=== PATIENT | male | born 1985 | race Caucasian/White ===

== ENCOUNTER 2018-11-11 20:02 | Emergency (ER) | payer SELFPAY ==
[2018-11-11 20:17] VITALS: BP 140/70; PULSE 86; TEMP 98.2; BMI 27.3
--- NOTE | 2018-11-11 20:43 | PDOC ---
Attending Attestation - Resident Resident Name: UnaWhit - ED Attending Attestation I have performed the following: I have examined & evaluated the patient, The case was reviewed & discussed with the resident, I agree w/resident's findings & plan - HPI HPI: 11/11/18 21:10 Pt comes with anxiety and panic attack. 11/11/18 21:47 Pt has a 1/2PPD smokerx 20 yrs - Physicial Exam PE: 11/11/18 21:11 Normal exam. No neuro findings; normal vitals No chest pain with palpation. Heart normal. No epigastric pain. 11/11/18 21:27 Agree with resident exam - Medical Decision Making 11/11/18 21:27 If labs are normal, pt will be stable for discharge home. We gave him 2 mg ativan PO for anxiety; we may send him home with 0.5mg ativan tid x 5 days. 11/11/18 21:46 CXR completely normal 11/11/18 22:40 troponin normal 11/12/18 00:25 Stable for d/c/ home; home with sister Heart Score/ECG Review - ECG Intrepretation Rhythm: Regular Rhythm - [place]: Normal - P and [place] Delta Wave(s) Present: No WPW: No - QRS Poor R Wave Progression: No Q Wave Present: No - ST and T Early Repolarization: No Non Specific ST-T Wave changes: No Flattened T Waves: No Prolonged Q-T Interval: No - ECG Impressions Normal ECG: Yes Non-specific ST Elevation: No Ischemic Changes: No Bradycardia: No Torsades renate Pointes: No WPW: No
[2018-11-11] MEDS ORDERED: LORazepam 1 MG TABLET PO ONE (21:10)
[2018-11-11] MEDS ORDERED: LORazepam 0.5 MG TABLET ONE (21:15)
--- NOTE | 2018-11-11 21:20 | PDOC ---
History of Present Illness - General Chief Complaint: Psychiatric Stated Complaint: ANXIETY Time Seen by Provider: 11/11/18 20:43 History Source: Patient, Sibling (sister) Exam Limitations: No Limitations - History of Present Illness Initial Comments: 11/11/18 21:17 32yo M with no significant PMH presenting to ED with complaints of anxiety, palpitations, chest tightness that has been happening every evening when he comes home from work for the past 3-4 weeks. Pt states that he went through a bad break up and when he starts to think about it, he feels like he is having a panic attack. He has never had symptoms like this before. His mother has a history of anxiety. He denies abdominal pain, n/v/d, fevers, chills, chest pain , back pain, syncope, drug use. He smokes 10-15 cigarettes/day, does not drink caffeine daily and occasionally drinks alcohol. PMD: none PSH: none PMH: none Meds: none Allergies: nkda Past History - Past Medical History Allergies/Adverse Reactions: Allergies Allergy/AdvReac Type Severity Reaction Status Date / Time No Known Allergies Allergy Verified 11/11/18 20:17 Home Medications: Ambulatory Orders Lorazepam [Ativan] 0.5 mg PO TID #15 tablet MDD 3 tabs 11/11/18 - Psycho Social/Smoking Cessation Hx Smoking History: Current every day smoker Number of Cigarettes Smoked Daily: 10 Information on smoking cessation initiated: No Hx Alcohol Use: Yes (Social) Drug/Substance Use Hx: No Review of Systems - Review of Systems Constitutional: Yes: Weight Stable. No: Chills, Fever, Loss of Appetite, Weakness HEENTM: No: Symptoms Reported Respiratory: Yes: See HPI Cardiac (ROS): Yes: See HPI ABD/GI: No: Symptoms Reported : No: Symptoms Reported Musculoskeletal: No: Symptoms Reported Integumentary: No: Symptoms Reported Neurological: Yes: See HPI Psychiatric: Yes: Anxiety *Physical Exam - Vital Signs Last Vital Signs Temp Pulse Resp BP Pulse Ox 98.2 F 86 18 140/70 99 11/11/18 20:03 11/11/18 20:03 11/11/18 20:03 11/11/18 20:03 11/11/18 20:03 - Physical Exam General Appearance: Yes: Nourished, Appropriately Dressed. No: Apparent Distress HEENT: positive: EOMI, SARTHAK, Normal ENT Inspection Neck: positive: Trachea midline, Supple. negative: Lymphadenopathy (R), Lymphadenopathy (L) Respiratory/Chest: positive: Lungs Clear, Normal Breath Sounds. negative: Crackles, Rales, Rhonchi, Stridor, Wheezing Cardiovascular: positive: Regular Rhythm, Regular Rate, S1, S2. negative: Edema , JVD, Murmur Vascular Pulses: Dorsalis-Pedis (R): 2+, Doralis-Pedis (L): 2+ Gastrointestinal/Abdominal: positive: Normal Bowel Sounds, Soft. negative: Tender Musculoskeletal: negative: CVA Tenderness Extremity: positive: Normal Capillary Refill. 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 states he has chest tightness, palpitations, sob. happens in the evenings after work and when he is alone. started after a breakup. worsened by thoughts of the breakup. ddx includes but not limited to anxiety, pe, acs, metabolic disorders, arrhythmia. low suspicion for pe PERC negative. will obtain labs including trop, tsh, ekg, cxr cxr appears grossly normal. read as bronchitis however pt does not have cough, or congestion. chest tightness seems to be episodic (triggered by thoughts and only happening in the evenings). ekg: nsr at 82bpm. pr 136, qtc 418. no salazar or depressions. no signs of acute ischemia. labs wnl. given ativan. pt feeling better. safe for dc home. rx sent for ativan. will give referral to clinic for follow up. given return precautions. pt agrees to plan. Discharge - Discharge Information Problems reviewed: Yes Clinical Impression/Diagnosis: Anxiety Condition: Good Disposition: HOME - Admission No - Additional Discharge Information Prescriptions: Lorazepam [Ativan] 0.5 mg PO TID #15 tablet MDD 3 tabs - Follow up/Referral Referrals: [facility] [place] [facility] [Provider Group] - Patient Discharge Instructions Patient Printed Discharge Instructions: DI for Anxiety -- Adult Additional Instructions: You were seen in the emergency room today for anxiety. Your blood work, ekg and xray are normal. I recommend making an appointment with a primary care doctor. Your insurance may have a provider for you on the card. I have provided a referral to a clinic below. Please try to make an appointment next week. A prescription was sent to your pharmacy. Take as directed. Come back to the emergency room if you have worsening attacks, feel like you cannot breathe, pass out or if any new concerning symptom develops. Thank you - Post Discharge Activity
[2018-11-11 22:05] LABS: ALBUMIN 4.3 g/dl (3.4-5.0); BILIRUBIN,TOTAL 0.2 mg/dL (0.2-1); BLOOD UREA NITROGEN 21.4 mg/dL (7-18); CALCIUM 8.9 mg/dL (8.5-10.1); CREATININE 0.9 mg/dL (0.55-1.3); TOT PROT 7.7 g/dl (6.4-8.2)
--- NOTE | 2018-11-13 16:55 | EKG ---
Test Reason : Blood Pressure : / mmHG Vent. Rate : 082 BPM Atrial Rate : 082 BPM P-R Int : 136 ms QRS Dur : 086 ms QT Int : 358 ms P-R-T Axes : 029 049 034 degrees QTc Int : 418 ms NORMAL SINUS RHYTHM NORMAL ECG NO PREVIOUS ECGS AVAILABLE Confirmed by NITZA FITZGERALD MD ([id number]) on 11/13/2018 4:55:08 PM Referred By: Confirmed By:NITZA FITZGERALD MD
== END 2018-11-11 22:58 | disposition home or self-care (01) ==
LOC: JER 20:02
DX: F41.9 Anxiety disorder, unspecified (principal); F17.210 Nicotine dependence, cigarettes, uncomplicated
CPT/HCPCS: 36415; 71046-TC-FY; 80053; 84443; 84484; 93005; 93010; 99281-25